=== PATIENT | female | born 1990 | race Caucasian/White ===

== ENCOUNTER 2018-03-10 13:53 | Emergency (ER) | payer OTHER ==
[~2018-03-10] VITALS: Ht 165.1 cm; Wt 61.2 kg
[~2018-03-10 13:53] MED LIST: ACEBUTCAFT PO; ALBU90OI INH; ALBU90OI61 INH; AMOX500 PO; Albuterol17 G1 INH; Amoxicillin500 MG PO; BC PILLS; BENZ100A PO; BIRTH CONTROL; BIRTH CONTROL PILLS; BUSP15 PO; CEPH500 PO; CIPR500 PO; CODGUAEL PO; CYCL10 PO; DIAZ5 PO; DIPH50 PO; DOCU100 PO; HYDACE5 PO; IBUP400; IBUP600 PO; IBUP800 PO; Keflex500 MG PO; LORPSEER24 PO; META800 PO; METCAR750 PO; METR500 PO; MULVITMINE PO; NAPR220 PO; ONDA8ODT MM; OXYACE5T PO; PENVK500 PO; PERM5TC TOP; PHENA200 PO; PRED20 PO; PRENATAL FORMU1 EACH PO; PRENATAL TABLE1 EAC1 PO; PROM25 PO; RANI150 PO; SULTRIDS PO; SULTRISS PO; TOPI15C PO; TRAM50 PO; TRIA80TC TOP; Tylenol325 MG PO; Veetids 500500 MG PO; Verotin-Gr Cap1 EACH
[2018-03-10] MEDS ORDERED: NEOPOLHCSU RIGHTEAR (14:12)
[2018-03-10] MEDS ORDERED: RISP1 PO (14:17)
[2018-03-10] MEDS ORDERED: HYDHCL25 PO (14:17)
== END 2018-03-10 14:19 | disposition home or self-care (01) ==
LOC: ER 13:53
DX: T16.1XXA Foreign body in right ear, initial encounter (principal); H60.91 Unspecified otitis externa, right ear; Z88.5 Allergy status to narcotic agent; Z79.899 Other long term (current) drug therapy; J45.909 Unspecified asthma, uncomplicated; F17.200 Nicotine dependence, unspecified, uncomplicated
CPT/HCPCS: 69200; 99282

== ENCOUNTER 2018-11-24 18:31 | Inpatient (IN) | payer OTHER ==
[~2018-11-24] VITALS: Ht 165.1 cm; Wt 63.6 kg
[~2018-11-24 18:31] MED LIST changes: +HYDHCL25 PO; +NEOPOLHCSU RIGHTEAR; +RISP1 PO
[2018-11-24 20:10] LABS: BASOPHILS ABSOLUTE AUTO 0.03 K/mm3 (0.00-0.23); BASOPHILS PERCENT AUTO 0 % (0-2); EOSINOPHILS ABSOLUTE AUTO 0.01 K/mm3 (0.00-0.68); EOSINOPHILS PERCENT AUTO 0 % (0-6); Hematocrit 39.6 % (33.0-51.0); Hemoglobin 12.4 g/dL (11.5-16.0); IMMATURE GRAN ABSOLUTE AUTO 0.07 K/mm3 (0.00-0.10); IMMATURE GRAN PERCENT AUTO 1 % (0-1); LYMPHOCYTES ABSOLUTE AUTO 1.71 K/mm3 (0.84-5.20); LYMPHOCYTES PERCENT AUTO 13 % (21-46); MONOCYTES ABSOLUTE AUTO 0.58 K/mm3 (0.16-1.47); MONOCYTES PERCENT AUTO 4 % (4-13); Mean Corpuscular HGB 27.3 pg (26.0-34.0); Mean Corpuscular HGB Conc 31.3 g/dL (31.5-36.5); Mean Corpuscular Volume 87 fL (80-100); Mean Platelet Volume 11.4 fL (9.1-12.4); NEUTROPHILS ABSOLUTE AUTO 11.32 K/mm3 (1.96-9.15); NEUTROPHILS PERCENT AUTO 83 % (41-73); Platelet Count 185 K/mm3 (150-400); RDW Coefficient Variation 13.6 % (11.7-14.2); RDW Standard Deviation 43.5 fL (35.1-46.3); Red Blood Cell Count 4.54 M/mm3 (3.80-5.20); White Blood Cell Count 13.72 K/mm3 (4.00-11.30)
[2018-11-26 06:16] LABS: HIV SCREEN 4TH GENERATION WRFX Non Reactive (Non Reactive)
[2018-11-26 07:14] LABS: HBSAG SCREEN Negative (Negative); HCV ANTIBODY <0.1 (0.0-0.9)
[2018-11-26] MEDS ORDERED: IBUP800 PO (08:04)
== END 2018-11-26 10:50 | disposition home or self-care (01) | DRG 776 ==
LOC: OBS 18:31 → BC 18:40 → OBS 18:40 → BC 19:00
PROVIDERS: ADMIT Obstetrics & Gynecology
PROC: 10E0XZZ Delivery of Products of Conception, External Approach (ICD-10-PCS; principal; 2018-11-24)
DX: Z39.0 Encounter for care and examination of mother immediately after delivery (principal)
CPT/HCPCS: 36415; 59414; 85025; 86592; 86762; 86803; 86850; 86900; 86901; 87081; 87340; 87389; 87653; J2590

== ENCOUNTER 2018-11-26 22:44 | Emergency (ER) | payer OTHER ==
[~2018-11-26] VITALS: Ht 167.6 cm; Wt 145.0 kg
== END 2018-11-27 00:20 | disposition home or self-care (01) ==
LOC: ER 22:44
DX: O99.325 Drug use complicating the puerperium (principal); F15.10 Other stimulant abuse, uncomplicated; N81.4 Uterovaginal prolapse, unspecified; O99.335 Smoking (tobacco) complicating the puerperium; F17.200 Nicotine dependence, unspecified, uncomplicated
CPT/HCPCS: 99284

== ENCOUNTER 2019-04-15 23:44 | Emergency (ER) | payer SELFPAY ==
[~2019-04-15] VITALS: Ht 167.6 cm; Wt 56.7 kg
== END 2019-04-16 01:07 | disposition home or self-care (01) ==
LOC: ER 23:44
DX: M25.511 Pain in right shoulder (principal); F17.210 Nicotine dependence, cigarettes, uncomplicated; V13.4XXA Pedal cycle driver injured in collision with car, pick-up truck or van in traffic accident, initial encounter
CPT/HCPCS: 73030; 73060; 99283-25

== ENCOUNTER 2019-06-11 14:03 | Emergency (ER) | payer SELFPAY ==
[~2019-06-11] VITALS: Ht 162.6 cm; Wt 48.1 kg
== END 2019-06-11 14:20 | disposition home or self-care (01) ==
LOC: ER 14:03
DX: H92.02 Otalgia, left ear (principal); F17.210 Nicotine dependence, cigarettes, uncomplicated
CPT/HCPCS: 99282

== ENCOUNTER 2019-07-09 23:22 | Emergency (ER) | payer SELFPAY ==
[~2019-07-09] VITALS: Ht 165.1 cm; Wt 45.4 kg
== END 2019-07-10 01:37 | disposition left against medical advice (07) ==
LOC: ER 23:22
DX: Z53.21 Procedure and treatment not carried out due to patient leaving prior to being seen by health care provider (principal)

== ENCOUNTER 2019-09-29 15:08 | Emergency (ER) | payer OTHER ==
[~2019-09-29] VITALS: Ht 167.6 cm; Wt 59.0 kg
[2019-09-29 16:02] LABS: Source, Urine Clean Catch
[2019-09-29 16:08] LABS: Bilirubin, Urine Neg (Neg); Blood, Urine 1+ (Neg); Glucose Qualitative, Urine Neg (Neg); Ketones, Urine Neg (Neg); Leukocyte Esterase, Urine 3+ (Neg); Nitrite, Urine Neg (Neg); Protein, Urine 1+ (Neg); Specific Gravity, Urine 1.025 (1.003-1.022); Urobilinogen, Urine NORM (Normal)
[2019-09-29 16:11] LABS: Appearance, Urine Hazy (Clear); Color, Urine Yellow (P-Yellow)
[2019-09-29 16:16] LABS: White Blood Cells, Urine 50-100 /hpf (0-5)
[2019-09-29 16:18] LABS: Bacteria Mod /hpf; Squamous Epithelial Cells Few /hpf (Few)
== END 2019-09-29 16:51 | disposition left against medical advice (07) ==
LOC: ER 15:08
PROVIDERS: Physician Assistant
DX: Z53.21 Procedure and treatment not carried out due to patient leaving prior to being seen by health care provider (principal)
CPT/HCPCS: 81001; 81025; 87086; 99283

== ENCOUNTER 2019-12-12 13:47 | Emergency (ER) | payer OTHER ==
[~2019-12-12] VITALS: Ht 165.1 cm; Wt 54.4 kg
[2019-12-12] MEDS ORDERED: IBUP600 PO (14:39)
== END 2019-12-12 14:42 | disposition home or self-care (01) ==
LOC: ER 13:47
DX: M25.512 Pain in left shoulder (principal); F17.200 Nicotine dependence, unspecified, uncomplicated; V19.9XXA Pedal cyclist (driver) (passenger) injured in unspecified traffic accident, initial encounter
CPT/HCPCS: 73030; 99283-25

== ENCOUNTER 2020-03-09 15:17 | Emergency (ER) | payer OTHER ==
[~2020-03-09] VITALS: Ht 165.1 cm; Wt 59.0 kg
== END 2020-03-09 16:08 | disposition home or self-care (01) ==
LOC: ER 15:17
DX: M25.512 Pain in left shoulder (principal); F17.210 Nicotine dependence, cigarettes, uncomplicated; V29.9XXA Motorcycle rider (driver) (passenger) injured in unspecified traffic accident, initial encounter
CPT/HCPCS: 73030; 99283-25

== ENCOUNTER 2020-04-30 09:44 | Emergency (ER) | payer OTHER ==
[~2020-04-30] VITALS: Ht 167.6 cm; Wt 54.4 kg
[2020-04-30] MEDS ORDERED: IBUP800 PO (11:49)
== END 2020-04-30 11:54 | disposition home or self-care (01) ==
LOC: ER 09:44
DX: M25.512 Pain in left shoulder (principal); F17.200 Nicotine dependence, unspecified, uncomplicated
CPT/HCPCS: 73000; 81025; 99283-25

== ENCOUNTER 2020-06-26 17:21 | Emergency (ER) | payer OTHER | END 2020-06-26 17:58 | disposition left against medical advice (07) | LOC: ER 17:21 | DX: Z53.21 Procedure and treatment not carried out due to patient leaving prior to being seen by health care provider (principal) ==

== ENCOUNTER 2020-07-06 23:59 | Emergency (ER) | payer OTHER ==
[~2020-07-06] VITALS: Ht 167.6 cm; Wt 54.4 kg
== END 2020-07-07 03:36 | disposition home or self-care (01) ==
LOC: ER 23:59
DX: F15.10 Other stimulant abuse, uncomplicated (principal); F17.200 Nicotine dependence, unspecified, uncomplicated
CPT/HCPCS: 99282

== ENCOUNTER 2020-08-21 06:28 | Emergency (ER) | payer OTHER ==
[~2020-08-21] VITALS: Ht 167.6 cm; Wt 54.4 kg
[2020-08-21] MEDS ORDERED: LATUDA120 MG PO (07:33)
[2020-08-21] MEDS ORDERED: BUSP5 PO (07:34)
[2020-08-21] MEDS ORDERED: RISP.5 PO (07:34)
== END 2020-08-21 07:39 | disposition home or self-care (01) ==
LOC: ER 06:28
DX: S40.012A Contusion of left shoulder, initial encounter (principal); F17.200 Nicotine dependence, unspecified, uncomplicated; W20.8XXA Other cause of strike by thrown, projected or falling object, initial encounter; Y93.89 Activity, other specified
CPT/HCPCS: 73010; 99283-25

== ENCOUNTER 2020-09-17 14:08 | Emergency (ER) | payer OTHER ==
[~2020-09-17] VITALS: Ht 167.6 cm; Wt 54.4 kg
[~2020-09-17 14:08] MED LIST changes: +BUSP5 PO; +LATUDA120 MG PO; +RISP.5 PO
[2020-09-17] MEDS ORDERED: SUBOXONE 8 MG-1 EACH SL (15:08)
[2020-09-17] MEDS ORDERED: MELA3 PO (15:08)
[2020-09-17] MEDS ORDERED: LATUDA120 MG PO (16:28)
[2020-09-17] MEDS ORDERED: RISP.5 PO (16:28)
[2020-09-17] MEDS ORDERED: BUSP10 PO (16:28)
== END 2020-09-17 17:05 | disposition home or self-care (01) ==
LOC: ER 14:08
DX: J40 Bronchitis, not specified as acute or chronic (principal); F20.9 Schizophrenia, unspecified; F41.9 Anxiety disorder, unspecified; F32.9 Major depressive disorder, single episode, unspecified; F17.200 Nicotine dependence, unspecified, uncomplicated; Z20.828 Contact with and (suspected) exposure to other viral communicable diseases; Z59.0 Homelessness; Z79.899 Other long term (current) drug therapy; Z91.14 Patient's other noncompliance with medication regimen
CPT/HCPCS: 99283; U0004

== ENCOUNTER 2020-11-05 22:43 | Emergency (ER) | payer OTHER ==
[~2020-11-05] VITALS: Ht 167.6 cm; Wt 54.4 kg
[~2020-11-05 22:43] MED LIST changes: +BUSP10 PO; +MELA3 PO; +SUBOXONE 8 MG-1 EACH SL
== END 2020-11-06 01:30 | disposition left against medical advice (07) ==
LOC: ER 22:43
DX: Z53.21 Procedure and treatment not carried out due to patient leaving prior to being seen by health care provider (principal)

== ENCOUNTER 2021-01-06 20:47 | Emergency (ER) | payer OTHER ==
[~2021-01-06] VITALS: Ht 167.6 cm; Wt 54.4 kg
[2021-01-06] MEDS ORDERED: SULTRIDS PO (21:05)
[2021-01-06] MEDS ORDERED: CEPH500 PO (21:05)
== END 2021-01-06 21:08 | disposition home or self-care (01) ==
LOC: ER 20:47
DX: L03.113 Cellulitis of right upper limb (principal); Z79.899 Other long term (current) drug therapy
CPT/HCPCS: 99283; A9270

== ENCOUNTER 2021-04-03 22:12 | Emergency (ER) | payer OTHER ==
[~2021-04-03] VITALS: Ht 165.1 cm; Wt 63.5 kg
== END 2021-04-03 23:10 | disposition home or self-care (01) ==
LOC: ER 22:12
DX: Z20.822 Contact with and (suspected) exposure to COVID-19 (principal); F17.200 Nicotine dependence, unspecified, uncomplicated
CPT/HCPCS: 99283

== ENCOUNTER 2022-09-10 11:45 | Emergency (ER) | payer OTHER ==
[~2022-09-10] VITALS: Ht 165.1 cm; Wt 63.5 kg
[~2022-09-10 11:45] MED LIST changes: +NARCAN4 M1
== END 2022-09-10 13:42 | disposition home or self-care (01) ==
LOC: ER 11:45
DX: S93.401A Sprain of unspecified ligament of right ankle, initial encounter (principal); X50.1XXA Overexertion from prolonged static or awkward postures, initial encounter; J45.909 Unspecified asthma, uncomplicated; F17.210 Nicotine dependence, cigarettes, uncomplicated; Z79.899 Other long term (current) drug therapy; Z59.00 Homelessness unspecified; Z76.0 Encounter for issue of repeat prescription
CPT/HCPCS: 73610

== ENCOUNTER → 2024-12-06 | Outpatient (CLI) | payer OTHER ==
[2024-12-10 13:06] LABS: APTIMA MEDIA TYPE Urine; C. TRACHOMATIS BY TMA Negative (Negative); N. GONORRHOEAE BY TMA Negative (Negative); SPECIMEN SOURCE Urine
== END | disposition home or self-care (01) ==
LOC: LAB SHORT 17:16
PROVIDERS: Nurse Practitioner Family
DX: Z72.51 High risk heterosexual behavior (principal)
CPT/HCPCS: 87491; 87591

== ENCOUNTER 2025-06-03 16:42 | Emergency (ER) | payer OTHER ==
[~2025-06-03] VITALS: Ht 165.1 cm; Wt 63.5 kg
[2025-06-03 16:59] VITALS: BP 118/91
== END 2025-06-03 17:04 | disposition home or self-care (01) ==
LOC: ER 16:42
DX: M25.511 Pain in right shoulder (principal); F15.10 Other stimulant abuse, uncomplicated; J45.909 Unspecified asthma, uncomplicated; F17.210 Nicotine dependence, cigarettes, uncomplicated
CPT/HCPCS: 99282

== ENCOUNTER 2025-08-01 20:30 | Emergency (ER) | payer OTHER ==
[~2025-08-01] VITALS: Ht 165.1 cm; Wt 68.0 kg
[2025-08-01 20:40] VITALS: BP 143/104
[2025-08-01] MEDS ORDERED: LIDO700A20 TOP (22:59)
[2025-08-01] MEDS ORDERED: Robaxin750 MG PO (22:59)
== END 2025-08-01 23:09 | disposition home or self-care (01) ==
LOC: ER 20:30
DX: S01.01XA Laceration without foreign body of scalp, initial encounter (principal); T14.8XXA Other injury of unspecified body region, initial encounter; F17.210 Nicotine dependence, cigarettes, uncomplicated; J45.909 Unspecified asthma, uncomplicated; Y04.8XXA Assault by other bodily force, initial encounter
CPT/HCPCS: 99283

== ENCOUNTER → 2025-08-12 | Outpatient (CLI) | payer OTHER ==
[~2025-08-12] MED LIST changes: +LIDO700A20 TOP; +Robaxin750 MG PO
[2025-08-15 08:49] LABS: HIV 1,2 COMBO ANTIGEN/ANTIBODY Negative (Negative)
[2025-08-15 10:23] LABS: HEPATITIS C AB CIA INTERP Negative (Negative); HEPATITIS C ANTIBODY CIA INDEX <0.02 IV
[2025-08-15 10:55] LABS: RPR SCREEN with Reflex Reactive (Nonreactive)
[2025-08-15 10:56] LABS: RPR TITER 1:4
[2025-08-15 13:07] LABS: APTIMA MEDIA TYPE Urine; C. TRACHOMATIS BY TMA Negative (Negative); N. GONORRHOEAE BY TMA Negative (Negative); T. VAGINALIS BY TMA Negative (Negative)
== END ==
LOC: LAB SHORT 16:15 → LAB 16:15
PROVIDERS: Registered Nurse Community Health
DX: Z11.3 Encounter for screening for infections with a predominantly sexual mode of transmission (principal); Z20.2 Contact with and (suspected) exposure to infections with a predominantly sexual mode of transmission
CPT/HCPCS: 84702; 86592; 86593; 86803; 87340; 87389; 87491; 87591; 87661